=== PATIENT | female | born 1960 | race Caucasian/White ===

== ENCOUNTER 2024-04-19 05:57 | Day surgery (SDC) | payer MEDICARE, OTHER ==
[2024-04-16 14:18] VITALS: BMI 25.3
[2024-04-19] MEDS ORDERED: PROPOFOL 20 ML ONE (06:59)
[2024-04-19] MEDS ORDERED: Rocuronium Bromide 10 MG/ML (10ML VIAL) ONE (06:59)
[2024-04-19] MEDS ORDERED: Ondansetron PF 4 MG/2 ML Vial ONE (06:59)
[2024-04-19] MEDS ORDERED: Dexamethasone 4 mg/ml Vial ONE (06:59)
[2024-04-19] MEDS ORDERED: Fentanyl 250 MCG/5 ML VIAL ONE (06:59)
[2024-04-19] MEDS ORDERED: Lidocaine 2% PF 5 ML VIAL ONE (06:59)
[2024-04-19] MEDS ORDERED: Bupivacaine/Epinephrine 0.25% 30 ML VIAL ONE (07:01)
[2024-04-19] MEDS ORDERED: Bupivacaine HCl 0.5%/Epinephrine 1:200,000/PF 30 ml Vial ONE (07:14)
[2024-04-19] MEDS ORDERED: LevoFLOXacin D5W 500 mg (100 mL) BAG ONE (07:18)
[2024-04-19] MEDS ORDERED: Midazolam HCl 2 mg/2 ml Vial ONE (07:24)
[2024-04-19] MEDS ORDERED: ePHEDrine Sulfate 50 MG/10 ML VIAL ONE (07:44)
[2024-04-19] MEDS ORDERED: HYDROcodone/Acetaminophen 5/325 mg Tablet ONE (09:26)
== END 2024-04-19 09:50 | disposition home or self-care (01) ==
LOC: CSHSDC 05:57
PROVIDERS: ATTEND Surgery
PROC: 0FT44ZZ Resection of Gallbladder, Percutaneous Endoscopic Approach (ICD-10-PCS; principal; 2024-04-19)
DX: K80.10 Calculus of gallbladder with chronic cholecystitis without obstruction (principal); E78.00 Pure hypercholesterolemia, unspecified; M81.0 Age-related osteoporosis without current pathological fracture; Z90.710 Acquired absence of both cervix and uterus; Z98.890 Other specified postprocedural states; Z79.899 Other long term (current) drug therapy; Z88.0 Allergy status to penicillin; Z88.2 Allergy status to sulfonamides
CPT/HCPCS: 47562; C1889; J1100; J1956; J2001; J2250; J2405; J2704; J3010; 88304